=== PATIENT | female | born 1960 | race American Indian/Alaskan Native ===

== ENCOUNTER 2017-07-25 00:19 | Inpatient (IN) | payer SELFPAY ==
[2017-07-25] MEDS ORDERED: DUONEB *Not for PRN Use IH ONE ×3 (00:33→15:08)
[2017-07-25] MEDS ORDERED: ATROVENT IH ONE ×2 (00:42)
[2017-07-25] MEDS ORDERED: PROVENTIL IH ONE ×2 (00:42)
--- NOTE | 2017-07-25 00:48 | Emergency Department Report ---
HPI - General Chief Complaint: Dyspnea/Respdistress Time Seen by Provider: 07/25/17 00:37 - HPI HPI: Room 26 The patient is a 57-year-old female presenting with a chief complaint of shortness of breath. Patient has been suffering from intermittent shortness of breath the past 3-4 months and the most recent episode beginning tonight. Patient is to cough that is nonproductive and rhinorrhea. Patient denies fever or sick contacts. Patient denies pain of any type. EMS was called for shortness breath and administered Solu-Medrol 125 mg, magnesium sulfate 2 g in addition to albuterol 5 mg. Location: [See above] Duration: [See above] Quality: [See above] Severity: [See above] Modifying factors: [see above] Context: [see above] Mode of transportation: [not driving] ED Past Medical Hx - Past Medical History Previous Medical History?: Yes Hx Hypertension: Yes Hx Diabetes: Yes Hx COPD: Yes - Family History Family history: no significant - Social History Smoking Status: Current Every Day Smoker (1 pack per day) Substance Use Type: None ED Review of Systems ROS: Stated complaint: EUFEMIA Other details as noted in HPI Constitutional: denies: fever ENT: other (rhinorrhea) Respiratory: cough, shortness of breath, wheezing Physical Exam - Physical Exam Physical Exam: GENERAL: The patient is well-developed well-nourished female sitting on stretcher appearing to have increased work of breathing. [] HEENT: Normocephalic. Atraumatic. Extraocular motions are intact. Patient has moist mucous membranes. NECK: Supple. Trachea midline CHEST/LUNGS: Diminished throughout, frequent expiratory wheezes. HEART/CARDIOVASCULAR: Regular. There is no tachycardia. There is no gallop rub or murmur. ABDOMEN: Abdomen is soft, nontender. Patient has normal bowel sounds. There is no abdominal distention. SKIN: There is no rash. There is no edema. There is no diaphoresis. NEURO: The patient is awake, alert, and oriented. The patient is cooperative. The patient has normal speech MUSCULOSKELETAL: There is no evidence of acute injury. ED Medical Decision Making - Lab Data Result diagrams: 07/25/17 00:42 07/25/17 00:37 - EKG Data -: EKG Interpreted by Me EKG shows normal: sinus rhythm Rate: tachycardia (116 bpm) - EKG Data When compared to previous EKG there are: previous EKG unavailable - Radiology Data Radiology results: report reviewed (chest x-ray), image reviewed (chest x-ray) interpreted by me: Chest x-ray-no definite focal infiltrate, no pneumothorax. - Differential Diagnosis COPD exacerbation, pneumonia Critical care attestation.: If time is entered above; I have spent that time in minutes in the direct care of this critically ill patient, excluding procedure time. ED Disposition Clinical Impression: COPD exacerbation, Shortness of breath Disposition: 09 OP ADMIT IP TO THIS HOSP Is pt being admited?: Yes Does the pt Need Aspirin: Yes Condition: Fair Instructions: Chronic Obstructive Pulmonary Disease (ED) Time of Disposition: 02:06 (hospitalist notified (Dr. Gabbie Guzman))
--- NOTE | 2017-07-25 01:02 | XRay Report ---
FINAL REPORT EXAM: XRAY CHEST SINGLE VIEW HISTORY: sob TECHNIQUE: A portable upright view the chest was submitted. FINDINGS: The heart is mildly enlarged. The lungs are hyperinflated. The lungs are diffusely congested with interstitial prominence compatible with CHF. Pleural fluid is not seen. There are EKG leads overlying the chest wall. The skeletal structures reveal a dextroscoliosis of the thoracic spine. IMPRESSION: COPD. Superimposed congestive heart failure pattern.
[2017-07-25 01:03] LABS: BUN/Creatinine Ratio 23; Blood Urea Nitrogen 9 mg/dL (7-17); Calcium 8.1 mg/dL (8.4-10.2); Hemolysis Index 48
[2017-07-25] MEDS ORDERED: ATIVAN ONE (01:04)
[2017-07-25] MEDS ORDERED: ATIVAN IV ONE (01:05)
[2017-07-25 02:00] LABS: Hematocrit 40.9 % (30.3-42.9); Hemoglobin 13.2 gm/dl (10.1-14.3); Mean Corpuscular HGB Conc 32 % (30-34); Mean Corpuscular Hemoglobin 29 pg (28-32); Mean Corpuscular Volume 91 fl (79-97); Platelet Count 383 K/mm3 (140-440); Red Blood Count 4.48 M/mm3 (3.65-5.03); Red Cell Distribution Width 14.3 % (13.2-15.2)
[2017-07-25] MEDS ORDERED: SODIUM CHLORIDE FLUSH SYRINGE 10 ML IV PRN (03:00)
[2017-07-25] MEDS ORDERED: ZOFRAN IV PRN (03:00)
[2017-07-25] MEDS ORDERED: TYLENOL PO PRN (03:00)
--- NOTE | 2017-07-25 03:03 | History and Physical Report ---
History of Present Illness Date of examination: 07/25/17 History of present illness: 57-year-old woman with a history of COPD, hypertension, diabetes was brought to the emergency room complaining of shortness of breath and cough productive of white phlegm. Symptoms are not relieved with inhalers at home Review Of Systems: Constitutional: no weight loss Ears, eyes, nose, mouth and throat: no nasal congestion, no nasal discharge, no sinus pressure, blurry vision, diplopia Neck: No neck pain or rigidity. Cardiovascular: no chest pain, orthopnea, palpitations Respiratory: + shortness of breath, cough Gastrointestinal:no abdominal pain, hematochezia Genitourinary : no dysuria, frequency , hematuria Musculoskeletal: no muscle ache Integumentary: no rash, no pruritis Neurological: no parathesias, focal weakness Endocrine: no cold or heat intolerance, no polyuria or polydipsia Hematologic/Lymphatic: no easy bruising, no easy bleeding, no gland swelling Allergic/Immunologic: no urticaria, no angioedema. PAST MEDICAL HISTORY: COPD, hypertension, diabetes PAST SURGICAL HISTORY: surgery on leg SOCIAL HISTORY: Smokes a pack a day, no alcohol or drug FAMILY HISTORY: Hypertension Medications and Allergies Allergies Allergy/AdvReac Type Severity Reaction Status Date / Time Penicillins Allergy Unknown Verified 07/25/17 00:29 Exam - Physical Exam Narrative exam: Gen. appearance: Patient lying in bed, no apparent distress HEENT: Normocephalic, atraumatic, pupils equally round and reactive to light, extraocular movement intact, and no sclericterus,. No JVD or thyromegaly or nodule,neck supple, no carotid bruit ,mucous membranes moist, no exudate or erythema Heart: S1, S2, regular rate and rhythm Lungs: wheezing bilaterally, breathing comfortable Abdomen: Positive bowel sounds, nontender, nondistended, no organomegaly Extremity: No edema, cyanosis, clubbing Skin: No rash, nodules, warm, dry Neuro: Oriented 3, cranial nerves II-12 intact, speech is fluent, motor and sensory intact - Constitutional Vitals: Temp Pulse Resp BP Pulse Ox 116 H 22 105/73 95 07/25/17 01:45 07/25/17 01:45 07/25/17 01:45 07/25/17 01:45 Results - Labs CBC & Chem 7: 07/25/17 00:42 07/25/17 00:37 Labs: Abnormal lab results 07/25/17 07/25/17 Range/Units 00:37 00:42 WBC 16.5 H (4.5-11.0) K/mm3 Carbon Dioxide 21 L (22-30) mmol/L Creatinine 0.4 L (0.7-1.2) mg/dL Glucose 166 H (65-100) mg/dL Calcium 8.1 L (8.4-10.2) mg/dL - Imaging and Cardiology EKG: image reviewed Chest x-ray: image reviewed Assessment and Plan Assessment Acute respiratory failure, hypoxic COPD exacerbation Hypertension Diabetes Plan Admit to medicine Start high dose steroids, nebulizer treatments, BIPAP Check abg, fingersticks and initiate insulin sliding scale DVT prophylaxis
[2017-07-25 03:13] LABS: Band Neutrophils # (Manual) 0.8 K/mm3; Basophils % (Manual) 0 % (0.0-1.8); Eosinophils % (Manual) 0 % (0.0-4.3); Total Cells Counted 100
[2017-07-25 03:14] LABS: Anisocytosis 1+; Hypochromasia Few
[2017-07-25 03:31] LABS: ABG Base Excess -0.7 mmol/L (-2.0-3.0); ABG HCO3 26.2 mmol/L (20.0-26.0); ABG Methemoglobin 0.5 % (0.0-1.5); ABG Oxygen Saturation 94.6 % (95.0-99.0); ABG PCO2 52.6 mm Hg; ABG PH 7.315 pH Units (7.350-7.450); ABG PO2 73.2 mm Hg (80.0-90.0)
[2017-07-25] MEDS ORDERED: D50W (25GM) Syringe IV PRN (04:34)
[2017-07-25] MEDS ORDERED: HumuLIN R ONE ×3 (07:53→17:05)
[2017-07-25] MEDS: DUONEB *Not for PRN Use IH SCH ×3 (08:15→19:47)
[2017-07-25] MEDS: HumuLIN R SUB-Q SCH ×4 (09:12→22:04)
[2017-07-25] MEDS ORDERED: LOVENOX SUB-Q SCH ×2 (10:00)
[2017-07-25] MEDS: SODIUM CHLORIDE FLUSH SYRINGE 10 ML IV SCH ×2 (10:10→22:04)
[2017-07-25] MEDS ORDERED: LOVENOX SUB-Q ONE (10:45)
--- NOTE | 2017-07-25 15:55 | Event Note ---
Date: 07/25/17 Patient was seen and evaluated at the bedside, patient was admitted this morning for COPD exacerbation, continue management per H&P.
[2017-07-26] MEDS: DUONEB *Not for PRN Use IH SCH ×3 (01:19→10:11)
[2017-07-26 06:24] LABS: Hematocrit 36.5 % (30.3-42.9); Hemoglobin 12.1 gm/dl (10.1-14.3); Lymphocytes # (Auto) 1.7 K/mm3 (1.2-5.4); Lymphocytes % (Auto) 9.2 % (13.4-35.0); Mean Corpuscular HGB Conc 33 % (30-34); Mean Corpuscular Hemoglobin 30 pg (28-32); Mean Corpuscular Volume 90 fl (79-97); Monocytes # (Auto) 0.3 K/mm3 (0.0-0.8); Monocytes % (Auto) 1.8 % (0.0-7.3); Platelet Count 355 K/mm3 (140-440); Red Blood Count 4.06 M/mm3 (3.65-5.03); Red Cell Distribution Width 13.6 % (13.2-15.2)
[2017-07-26 06:59] LABS: BUN/Creatinine Ratio 24; Blood Urea Nitrogen 12 mg/dL (7-17); Hemolysis Index 5
[2017-07-26] MEDS: HumuLIN R SUB-Q SCH (08:00)
[2017-07-26 08:52] VITALS: BP 147/77
--- NOTE | 2017-07-26 12:23 | Discharge Summary ---
Providers - Providers Date of Admission: 07/25/17 03:00 Date of discharge: 07/26/17 Attending physician: MIHAELA DUKE MD 07/26/17 08:00 Consult to Wound/ET Nurse [CONS] Routine Reason For Exam: wound eval Primary care physician: PAUL HERNANDEZ Hospitalization Condition: Stable Pertinent studies: Chest x-ray showed COPD. Superimposed congestive heart failure pattern Hospital course: 57-year-old woman with a history of COPD, hypertension, diabetes was brought to the emergency room complaining of shortness of breath and cough productive of white phlegm Patient was found to have acute hypoxic respiratory failure which is likely due to COPD exacerbation. She was treated with bronchodilators, O2 therapy, BiPAP after which she clinically improved. Patient is clinically stable for discharge back to her home where she will resume her home medications. She is being discharged with antibiotics and albuterol inhaler. Patient is advised to follow up with her primary care provider within 7 days of discharge Discharge diagnoses Acute hypoxic respiratory failure COPD exacerbation Hypertension Diabetes mellitus Disposition: TO HOME OR SELFCARE Time spent for discharge: 32 minutes Core Measure Documentation - Palliative Care Palliative Care/ Comfort Measures: Not Applicable - Core Measures Any of the following diagnoses?: none Exam - Constitutional Vitals: Temp Pulse Resp BP Pulse Ox 97.8 F 71 18 147/77 100 07/26/17 08:50 07/26/17 10:30 07/26/17 10:30 07/26/17 08:50 07/26/17 10:16 General appearance: Present: no acute distress, well-nourished - EENT Eyes: Present: PERRL ENT: hearing intact, clear oral mucosa - Neck Neck: Present: supple, normal ROM - Respiratory Respiratory effort: normal Respiratory: bilateral: CTA - Cardiovascular Heart Sounds: Present: S1 & S2. Absent: rub, click - Extremities Extremities: pulses symmetrical, No edema Peripheral Pulses: within normal limits - Abdominal General gastrointestinal: Present: soft, non-tender, non-distended, normal bowel sounds Female genitourinary: Present: normal - Integumentary Integumentary: Present: clear, warm, dry - Musculoskeletal Musculoskeletal: gait normal, strength equal bilaterally - Psychiatric Psychiatric: appropriate mood/affect, intact judgment & insight - Neurologic Neurologic: CNII-XII intact, moves all extremities Plan Activity: fall precautions Weight Bearing Status: Weight Bear as Tolerated Diet: low fat, low cholesterol, low salt, diabetic Follow up with: PAUL HERNANDEZ MD [Primary Care Provider] - 7 Days PRIMARY CARE, [Referring] - 7 Days Prescriptions: Albuterol Sulfate [Proventil Hfa] 2 puff IH Q4H #1 hfa.aer.ad Inhaler, Assist Devices [Space Chamber Plus] 1 each MC Q4H #1 spacer Levofloxacin [Levaquin TAB] 500 mg PO QDAY #5 tablet
== END 2017-07-26 14:20 | disposition home or self-care (01) | DRG 189 ==
LOC: ED 00:19 → 4A 03:00
PROVIDERS: ADMIT Internal Medicine; ATTEND Internal Medicine
PROC: 4A033R1 Measurement of Arterial Saturation, Peripheral, Percutaneous Approach (ICD-10-PCS; principal; 2017-07-25)
PROC: 5A09357 Assistance with Respiratory Ventilation, Less than 24 Consecutive Hours, Continuous Positive Airway Pressure (ICD-10-PCS; 2017-07-25)
DX: J96.01 Acute respiratory failure with hypoxia (principal); J44.1 Chronic obstructive pulmonary disease with (acute) exacerbation; I10 Essential (primary) hypertension; Z88.0 Allergy status to penicillin; E11.9 Type 2 diabetes mellitus without complications; Z82.49 Family history of ischemic heart disease and other diseases of the circulatory system
CPT/HCPCS: 36415; 36600; 71045; 80048; 82803; 82962; 85007; 85025; 93005; 93010; 94640; 94760; J1650; J1815; J2060; J2930

== ENCOUNTER 2018-01-25 13:36 | Outpatient (CLI) | payer OTHER ==
[2018-01-25] MEDS ORDERED: PROVENTIL IH ONE (14:32)
== END 2018-01-25 13:37 | disposition home or self-care (01) ==
LOC: PF 13:36
PROVIDERS: ATTEND Internal Medicine
DX: J44.9 Chronic obstructive pulmonary disease, unspecified (principal); E11.9 Type 2 diabetes mellitus without complications; I10 Essential (primary) hypertension; I25.2 Old myocardial infarction; F32.9 Major depressive disorder, single episode, unspecified; Z88.1 Allergy status to other antibiotic agents; Z88.0 Allergy status to penicillin
CPT/HCPCS: 94060; 94729